=== PATIENT | female | born 1955 | race Two or more races ===

== ENCOUNTER → 2016-08-01 | Outpatient (CLI) | payer OTHER ==
[~2016-08-01] MED LIST: CARV3.12 PO; HYDR-3516 PO; IBUP800T23 PO; LEVO500T3 PO; LISI2.5T3 PO; LOVA10TA PO; METR500T10 PO
[2016-08-01 09:24] LABS: ALKALINE PHOSPHATASE 58 U/L (45-117); ALT (GPT) 24 U/L (10-53); ANION GAP 6 MEQ/L (5-15); AST (GOT) 19 U/L (15-37); BICARBONATE 27.8 MEQ/L (21.0-32.0); BLOOD UREA NITROGEN 17 MG/DL (7-18); CHLORIDE 107 MEQ/L (98-107); GLOMERULAR FILTRATION RATE 61 ML/MIN (>89); GLUCOSE,FASTING 90 MG/DL (74-99); HDL CHOLESTEROL 54.6 MG/DL (40.0-60.0); LDL CHOLESTEROL 79 MG/DL (0-99); POTASSIUM 4.5 MEQ/L (3.5-5.1); SODIUM (NA) 141 MEQ/L (136-145); TOTAL BILIRUBIN ADULT 0.3 MG/DL (0.2-1.0)
== END ==
LOC: CLAB 08:25
PROVIDERS: ATTEND Family Medicine
DX: I25.10 Atherosclerotic heart disease of native coronary artery without angina pectoris (principal)
CPT/HCPCS: 36415; 80053; 80061

== ENCOUNTER → 2017-01-19 | Outpatient (CLI) | payer OTHER ==
[~2017-01-19] VITALS: Ht 157.5 cm; Wt 81.4 kg
[~2017-01-19] MED LIST changes: +CHLORHEXIDINE GLUCONATE 2 % 1 PACK (2 CLOTHS) TOPICAL PRN; +IBUP1TAB7 PO; -IBUP800T23 PO; +INSULIN HUMAN REGULAR 1,000 UNITS/10 ML VIAL SQ PRN; +LACTATED RINGER'S 1000 ML IV PRN; +LIDOCAINE HCL 1% PF 5 ML SYRINGE OTHER ONE; +METOPROLOL TARTRATE 25 MG TAB PO PRN; +METR1TAB76 PO; -METR500T10 PO; +POVIDONE IODINE 5% (ANTISEPSIS KIT) 4 APPLICATIONS EACH NARE PRN; +PROPOFOL 200 MG/20 ML AMP IV ONE; +SODIUM CHLORID 0.9% 500 ML IV PRN
--- NOTE | 2017-01-19 11:29 | GIPROC ---
[facility] [address] [facility]. [facility], [address] COLONOSCOPY PROCEDURE REPORT EXAM DATE: 01/19/2017 PATIENT NAME: Kelley Rico MR #: [id number] BIRTHDATE: 1955 ENDOSCOPIST: Jason Hutton MD ORDER #: [id number] PLANER SETTER: Andrzej Wahl and Sylvie Calderon STATUS: outpatient INDICATIONS: The patient is a 61 yr old female here for a colonoscopy due to patient's family history of colon polyps PROCEDURE PERFORMED: Colonoscopy with biopsy MEDICATIONS: None and Per Anesthesia. PREP QUALITY: good PREP TYPE:SuPrep ESTIMATED BLOOD LOSS: None CONSENT: The patient understands the risks and benefits of the procedure and understands that these risks include, but are not limited to: sedation, allergic reaction, infection, perforation and/or bleeding. Alternative means of evaluation and treatment include, among others: physical exam, x-rays, and/or surgical intervention. The patient elects to proceed with this endoscopic procedure. medical equipment was checked for proper function. Hand hygiene and appropriate measures for infection prevention was taken. After the risks, benefits and alternatives of the procedure were thoroughly explained, Informed consent was verified, confirmed and timeout was successfully executed by the treatment team. A digital exam was performed The Pentax [id number] endoscope was introduced through the anus and advanced to the cecum, which was identified by both the appendix and ileocecal valve. The instrument was then slowly withdrawn as the colon was fully examined. COLON FINDINGS: Mild diverticulosis was noted in the sigmoid colon. A diminutive sessile polyp was found in the descending colon. A polypectomy was performed with cold forceps. The resection was complete and the polyp tissue was completely retrieved. The colon mucosa was otherwise normal. Retroflexed views revealed internal hemorrhoids and Retroflexed views revealed small internal hemorrhoids The scope was then completely withdrawn from the patient and the procedure terminated. PROCEDURE WITHDRAWAL TIME:8minutes ADVERSE EVENTS: There were no complications. IMPRESSIONS: 1. Mild diverticulosis was noted in the sigmoid colon 2. A diminutive sessile polyp was found in the descending colon; polypectomy was performed with cold forceps 3. The colon mucosa was otherwise normal 4. Retroflexed views revealed internal hemorrhoids 5. Retroflexed views revealed small internal hemorrhoids 6. Was performed RECOMMENDATIONS: 1. Await biopsy results. Biopsy results will not be ready for 7-10 days. If you don't hear from us in two weeks, call our office for results. 2. Benefiber 2 tsp daily RECALL: Return 5 years Colonoscopy Jason Hutton MD eSigned: Jason Hutton MD 01/19/2017 11:29 AM cc: Hari Ramirez M.D. PATIENT NAME: Kelley Rico MR#: [id number]
[2017-01-19 12:05] VITALS: BP 135/70; PULSE 52; RESP 20; TEMP 97.7; O2SAT 98
--- NOTE | 2017-01-19 15:17 | EKG ---
Date Performed: 01/19/2017 Time Performed: 09:25:30 PTAGE: 61 years EKG: Sinus rhythm MINIMAL VOLTAGE CRITERIA FOR LVH, CONSIDER NORMAL VARIANT BORDERLINE ECG Compared to PREVIOUS TRACING , QRS voltage is slightly greater, otherwise no significant change. PREV IOUS TRACIN07/24/2008 08.25 DOCTOR: Darius Granados Interpretating Date/Time 01/19/2017 15:16:26
== END ==
LOC: HEND 08:41
PROVIDERS: ATTEND Internal Medicine Gastroenterology
DX: Z12.11 Encounter for screening for malignant neoplasm of colon (principal); I25.2 Old myocardial infarction; K63.5 Polyp of colon; K57.30 Diverticulosis of large intestine without perforation or abscess without bleeding
CPT/HCPCS: 00810; 45380; 88305; 93005; J7120

== ENCOUNTER → 2017-01-22 | Outpatient (CLI) | payer OTHER ==
[~2017-01-22] MED LIST changes: -CHLORHEXIDINE GLUCONATE 2 % 1 PACK (2 CLOTHS) TOPICAL PRN; -HYDR-3516 PO; -IBUP1TAB7 PO; -INSULIN HUMAN REGULAR 1,000 UNITS/10 ML VIAL SQ PRN; -LACTATED RINGER'S 1000 ML IV PRN; -LEVO500T3 PO; -LIDOCAINE HCL 1% PF 5 ML SYRINGE OTHER ONE; -METOPROLOL TARTRATE 25 MG TAB PO PRN; -METR1TAB76 PO; -POVIDONE IODINE 5% (ANTISEPSIS KIT) 4 APPLICATIONS EACH NARE PRN; -PROPOFOL 200 MG/20 ML AMP IV ONE; -SODIUM CHLORID 0.9% 500 ML IV PRN
[2017-01-22 07:33] LABS: ALT (GPT) 30 U/L (10-53); ANION GAP 5 MEQ/L (5-15); AST (GOT) 19 U/L (15-37); BICARBONATE 26.6 MEQ/L (21.0-32.0); BLOOD UREA NITROGEN 19 MG/DL (7-18); CHLORIDE 108 MEQ/L (98-107); GLOMERULAR FILTRATION RATE 53 ML/MIN (>89); GLUCOSE,FASTING 92 MG/DL (74-99); POTASSIUM 4.1 MEQ/L (3.5-5.1); SODIUM (NA) 140 MEQ/L (136-145)
[2017-01-22 07:37] LABS: ALKALINE PHOSPHATASE 58 U/L (45-117); LDL CHOLESTEROL 71 MG/DL (0-99); TOTAL BILIRUBIN ADULT 0.3 MG/DL (0.2-1.0)
== END ==
LOC: CLAB 06:54
PROVIDERS: ATTEND Family Medicine
DX: I25.10 Atherosclerotic heart disease of native coronary artery without angina pectoris (principal)
CPT/HCPCS: 36415; 80053; 80061

== ENCOUNTER 2017-04-20 07:03 | Emergency (ER) | payer OTHER ==
[~2017-04-20] VITALS: Ht 157.5 cm; Wt 80.0 kg
[2017-04-20 07:08] VITALS: BP 158/78; PULSE 68; RESP 14; TEMP 98.6; O2SAT 97
--- NOTE | 2017-04-20 07:27 | PD ---
HPI Chief Complaint: Injury Time Seen by Provider: 07:14 Travel History International Travel<30 days: No Contact w/Intl Traveler<30days: No Traveled to known affect area: No History of Present Illness HPI 61-year-old female presents the emergency department after stumbling and falling at work injuring her right ankle/foot. She states she was sitting at her desk when she tried to get up she felt that her legs were asleep, and then she stumbled and fell. She is not having difficulty ambulating on her right foot/ankle due to pain along the dorsal lateral region. She denies any other injury other than a contusion to the inner left upper arm, and right upper arm. She did not hit her head or lose consciousness. She denies any pain of the back or abdomen. The pain in the ankle and foot is approximately 8 out of 10. It is worse with attempted ambulation. There is no open wounds. She is able to wiggle her toes without difficulty. She has no numbness or tingling. She has no known drug allergies. PFSH Past Medical History Cancer: No Cardiac Catheterization: Yes Cardiovascular Problems: Yes High Cholesterol: Yes Diabetes: No Diminished Hearing: No Diverticulitis: Yes Endocrine: No Genitourinary: No Hepatitis: No Hiatal Hernia: No Hypertension: Yes Immune Disorder: No Musculoskeletal: No Neurologic: No Psychiatric: No Reproductive: No Respiratory: No Immunizations Current: Yes Myocardial Infarction: Yes (JULY,HAD A HEART ATTACK, ANGIOPLSTY WAS DONE, SHOWING MINOR [place]) Pancreatitis: Yes Thyroid Disease: No : 3 Para: 3 Past Surgical History Abdominal Surgery: No AICD: No Cardiac Surgery: No Ear Surgery: No Endocrine Surgery: No Eye Surgery: No Genitourinary Surgery: No Gynecologic Surgery: Yes (HYSTERECTOMY) Hysterectomy: Yes Joint Replacement: No Oral Surgery: Yes (FOR DENTURES) Pacemaker: No Social History Alcohol Use: No Tobacco Use: No (QUIT 13 YEARS AGO) Substance Use: No Allergies-Medications (Allergen,Severity, Reaction): Coded Allergies: No Known Allergies (Verified Allergy, Unknown, 01/19/17) Reported Meds & Prescriptions Reported Meds & Active Scripts Active Reported Lovastatin 10 Mg Tab 10 Mg PO DAILY Carvedilol 3.125 Mg Tab 3.125 Mg PO DAILY Lisinopril 2.5 Mg Tab 2.5 Mg PO DAILY Review of Systems Except as stated in HPI: all other systems reviewed are Neg General / Constitutional: No: Fever Eyes: No: Visual changes HENT: No: Headaches Cardiovascular: No: Chest Pain or Discomfort Respiratory: No: Shortness of Breath Gastrointestinal: No: Abdominal Pain Genitourinary: No: Dysuria Musculoskeletal: Positive: Arthralgias, Limited ROM, Pain Skin: No Rash Neurologic: No: Weakness Psychiatric: No: Depression Endocrine: No: Polydipsia Hematologic/Lymphatic: No: Easy Bruising Physical Exam Narrative GENERAL: Patient appears in [id number] distress. SKIN: Warm and dry. Normal color. Normal turgor. Patient has swelling and ecchymosis over the dorsal lateral proximal right foot just distal to the right lateral malleolus. HEAD: Atraumatic. Normocephalic. EYES: Pupils equal and round. No scleral icterus. No injection or drainage. ENT: No nasal bleeding or discharge. Mucous membranes pink and moist. Pharynx is clear. Airway is patent. NECK: Trachea midline. Supple and nontender. CARDIOVASCULAR: Regular rate and rhythm. RESPIRATORY: No accessory muscle use. Clear to auscultation. Breath sounds equal bilaterally. GASTROINTESTINAL: Abdomen soft, non-tender, nondistended. Hepatic and splenic margins not palpable. MUSCULOSKELETAL: Extremities without clubbing, cyanosis, or edema. No obvious deformities. Patient is pain tenderness along the right medial dorsal lateral foot with pain at the base of the fifth metatarsal. The ankle malleolus itself is nontender. NEUROLOGICAL: Awake and alert. No obvious cranial nerve deficits. Motor grossly within normal limits. Five out of 5 muscle strength in the arms and legs. Normal speech. PSYCHIATRIC: Appropriate mood and affect; insight and judgment normal. Data Data Last Documented VS Vital Signs Date Time Temp Pulse Resp B/P (MAP) Pulse Ox O2 Delivery O2 Flow Rate FiO2 04/20/17 07:08 98.6 68 14 158/78 (104) 97 Room Air Orders Orders Ankle, Complete ([id number]) (04/20/17 07:23) Foot, Complete ([id number]) (04/20/17 07:25) Ibuprofen (Motrin) (04/20/17 07:30) Splint Or Brace Apply/Monitor (04/20/17 07:54) Crutches (04/20/17 07:54) [facility] Medical Decision Making Medical Screen Exam Complete: Yes Emergency Medical Condition: Yes Differential Diagnosis Fall at work. Contusion. Sprain. Right foot fracture. Right ankle fracture. Narrative Course Patient is given ibuprofen 600 mg by mouth. X-rays were obtained of the right ankle and foot. X-rays of the right ankle and right foot show no acute process per radiologist. Patient is placed in a ankle stirrup splint, and crutches. Patient will be continued on ibuprofen 600 mg 4 times a day #40 Patient is to use ice to the area frequently. Patient can ambulate as tolerated. Worker's Comp. forms completed. Patient should follow-up with her Worker's Comp. provider for clearance of the next week. Diagnosis Primary Impression: Unspecified sprain of right foot, initial encounter Patient Instructions: Ankle Stirrup Splint (ED), Crutch Instructions (ED), General Instructions Additional Instructions: X-rays of the right ankle and right foot show no acute process per radiologist. Patient is placed in a ankle stirrup splint, and crutches. Patient will be continued on ibuprofen 600 mg 4 times a day #40 Patient is to use ice to the area frequently. Patient can ambulate as tolerated. Worker's Comp. forms completed. Patient should follow-up with her Worker's Comp. provider for clearance of the next week. Med/Other Pt SpecificInfo: Prescription(s) given Disposition: 01 DISCHARGE HOME Condition: Stable Brandan Reyes Apr 20, 2017 07:27
[2017-04-20] MEDS ORDERED: IBUPROFEN 600 MG TAB PO ONE (07:30)
--- NOTE | 2017-04-20 07:47 | RADRPT ---
EXAM DATE/TIME: 04/20/2017 07:38 [facility] COMPARISON: No previous studies available for comparison. INDICATIONS : Lateral right ankle pain after fall. MEDICAL HISTORY : None. SURGICAL HISTORY : None. ENCOUNTER: Initial ACUITY: 1 day PAIN SCORE: 9/10 LOCATION: Right lateral ankle FINDINGS: Three view exam was performed of the right ankle. The bony structures are in normal alignment. No e vidence of fracture or dislocation. Mild soft tissue swelling overlying the lateral malleolus. The an kle mortise is intact. No radiopaque foreign bodies are seen. Bony mineralization is normal. CONCLUSION: 1. No acute fracture or dislocation. Stanford Rodriguez MD on April 20, 2017 at 7:45 Board Certified Radiologist. This report was verified electronically.
--- NOTE | 2017-04-20 07:48 | RADRPT ---
EXAM DATE/TIME: 04/20/2017 07:37 [facility] COMPARISON: No previous studies available for comparison. INDICATIONS : Right lateral foot pain after fall. MEDICAL HISTORY : None. SURGICAL HISTORY : None. ENCOUNTER: Initial ACUITY: 1 day PAIN SCORE: 9/10 LOCATION: Right lateral foot FINDINGS: Three view examination of the right foot demonstrates no soft tissue swelling, dislocation, or fractu re. The tarsal bones appear intact. The interphalangeal and metatarsophalangeal joints are intact. The calcaneus is intact. Bony mineralization is normal. CONCLUSION: 1. No acute fracture or dislocation. Stanford Rodriguez MD on April 20, 2017 at 7:46 Board Certified Radiologist. This report was verified electronically.
== END 2017-04-20 08:54 | disposition home or self-care (01) ==
LOC: NEPD 07:03
DX: S93.601A Unspecified sprain of right foot, initial encounter (principal); S40.022A Contusion of left upper arm, initial encounter; S40.021A Contusion of right upper arm, initial encounter; I10 Essential (primary) hypertension; E78.00 Pure hypercholesterolemia, unspecified; I25.2 Old myocardial infarction; Z87.19 Personal history of other diseases of the digestive system; W01.0XXA Fall on same level from slipping, tripping and stumbling without subsequent striking against object, initial encounter; Y99.0 Civilian activity done for income or pay
CPT/HCPCS: 73610; 73630; 99283; E0113; L1906